=== PATIENT | female | born 1965 | race Caucasian/White ===

== ENCOUNTER 2017-06-20 11:36 | Inpatient (IN) | payer BC, OTHER ==
[~2017-06-20] VITALS: Ht 172.7 cm; Wt 83.7 kg
[~2017-06-20 11:36] MED LIST: ALPR0.5T99 PO; ISOMCAP PO; LEXA10TA PO
[2017-06-20 11:45] VITALS: BP 139/72; PULSE 83; RESP 16; TEMP 97.9; O2SAT 97
[2017-06-20] MEDS ORDERED: LISI-519 PO (12:01)
[2017-06-20] MEDS ORDERED: ALPR.5 PO (12:01)
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
[2017-06-20] MEDS ORDERED: ONDANSETRON HCL 4 MG/2 ML VIAL IVP ONE (12:15)
[2017-06-20] MEDS ORDERED: MORPHINE SULFATE 4 MG/ML INJ IV PUSH ONE (12:15)
[2017-06-20 12:34] LABS: AUTOMATED NEUTROPHIL # 6.7 TH/MM3 (1.8-7.7); BASOPHIL # 0.1 TH/MM3 (0-0.2); BASOPHIL % 0.9 % (0.0-2.0); EOSINOPHIL # 0.1 TH/MM3 (0-0.4); EOSINOPHIL % 1.1 % (0.0-4.0); HEMATOCRIT 38.6 % (35.0-46.0); HEMO FLAGS DIFF FINAL; LYMPH % 21.6 % (9.0-44.0); MEAN CELL VOLUME 86.6 FL (80.0-100.0); MEAN CORPUSCULAR HEMOGLOBIN 28.8 PG (27.0-34.0); MEAN CORPUSCULAR HGB CONC 33.2 % (32.0-36.0); MONO % 4.5 % (0.0-8.0); NEUT % 71.9 % (16.0-70.0); PLATELET COUNT 275 TH/MM3 (150-450); RED BLOOD COUNT 4.46 MIL/MM3 (4.00-5.30); WHITE BLOOD COUNT 9.3 TH/MM3 (4.0-11.0)
[2017-06-20] MEDS ORDERED: OLOP1DRO EACH EYE (12:46)
[2017-06-20] MEDS ORDERED: TRAM50TA PO (12:46)
[2017-06-20] MEDS ORDERED: NORE1CHW CHEW (12:46)
[2017-06-20] MEDS ORDERED: phentermine (12:46)
[2017-06-20 12:48] LABS: APTT (PATIENT) 22.9 SEC (24.3-30.1); INTERNATIONAL NORMALIZED RATIO 0.9 RATIO; PROTHROMBIN TIME - PATIENT 10.3 SEC (9.8-11.6)
--- NOTE | 2017-06-20 13:32 | RADRPT ---
EXAM DATE/TIME: 06/20/2017 13:05 [facility] COMPARISON: No previous studies available for comparison. INDICATIONS : Fell on right wrist MEDICAL HISTORY : None. SURGICAL HISTORY : None. ENCOUNTER: Initial ACUITY: 1 day PAIN SCORE: 8/10 LOCATION: Right wrist FINDINGS: There is a comminuted fracture of the distal radius with dorsal angulation and displacement of the di stal fragments. The fracture extends into the radiocarpal joint. This also fracturing at the ulnar st yloid. The carpal bones are normally aligned. CONCLUSION: Distal radial and ulnar styloid fracture. Robin Juarez MD on June 20, 2017 at 13:30 Board Certified Radiologist. This report was verified electronically.
[2017-06-20] MEDS ORDERED: HYDROmorphone HCL PF 1 MG/ML VIAL IVS ONE (14:00)
[2017-06-20 14:33] VITALS: BP 128/71; PULSE 60; RESP 18; O2SAT 100
[2017-06-20] MEDS ORDERED: MAGNESIUM HYDROXIDE SUSP 30 ML CUP PO PRN (14:45)
[2017-06-20] MEDS ORDERED: LACTULOSE SYRUP 20 GM/30 ML CUP PO PRN (14:45)
[2017-06-20] MEDS ORDERED: SODIUM CHLORIDE 0.9% FLUSH 10 ML FLUSH IV FLUSH PRN (14:45)
[2017-06-20] MEDS ORDERED: oxyCODONE/ACETAMINOPHEN 10 MG/325 MG TAB PO PRN (14:45)
[2017-06-20] MEDS ORDERED: BISACODYL 10 MG SUPP RECTAL PRN (14:45)
[2017-06-20] MEDS ORDERED: NALOXONE HCL 0.4 MG/ML AMP IV PUSH PRN (14:45)
[2017-06-20] MEDS ORDERED: ACETAMINOPHEN 325 MG TAB PO PRN (14:45)
[2017-06-20] MEDS ORDERED: SENNOSIDES 8.6 MG TAB PO PRN (14:45)
[2017-06-20] MEDS: SODIUM CHLOR 0.45% 1000 ML INJ 1,000 ML IV SCH (15:32)
--- NOTE | 2017-06-20 15:50 | RADRPT ---
EXAM DATE/TIME: 06/20/2017 15:14 [facility] COMPARISON: No previous studies available for comparison. INDICATIONS : Evaluate for pneumothorax, pneumonia or other disease, pre admission, pre op for wrist surgery MEDICAL HISTORY : None. SURGICAL HISTORY : None. ENCOUNTER: Initial ACUITY: 1 day PAIN SCORE: 0/10 LOCATION: Bilateral chest FINDINGS: PA and lateral views of the chest demonstrate the lungs to be symmetrically aerated without evidence of mass, infiltrate or effusion. The cardiomediastinal contours are unremarkable. Osseous structure s are intact. CONCLUSION: 1. No acute cardiopulmonary disease. Chuck Chowdary MD on June 20, 2017 at 15:48 Board Certified Radiologist. This report was verified electronically.
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
[2017-06-20 17:00] VITALS: BP 122/77; PULSE 65; O2SAT 99
[2017-06-20 18:53] VITALS: BP 137/75; PULSE 65; O2SAT 99
--- NOTE | 2017-06-20 19:13 | EKG ---
Date Performed: 06/20/2017 Time Performed: 15:28:42 PTAGE: 51 years EKG: Sinus rhythm WITH SINUS ARRHYTHMIA POSSIBLE LEFT ATRIAL ENLARGEMENT BORDERLINE ECG PREVIOUS TRACING : 11/29/2007 16.02 No significant change from previous tracing noted. DOCTOR: Levy Gomez Interpretating Date/Time 06/20/2017 19:12:54
[2017-06-20 20:44] VITALS: BP 136/76; PULSE 68; RESP 18; O2SAT 99
[2017-06-20 21:00] VITALS: BP 137/80; PULSE 61; RESP 18; TEMP 98.5; O2SAT 98
[2017-06-20] MEDS: SODIUM CHLORIDE 0.9% FLUSH 10 ML FLUSH IV FLUSH SCH (21:00)
[2017-06-20] MEDS: HYDROmorphone HCL 2 MG TAB PO PRN (21:21)
[2017-06-20] MEDS: DOCUSATE SODIUM 50 MG/SENNA 8.6 MG TAB PO SCH (21:24)
[2017-06-20] MEDS ORDERED: POVIDONE IODINE 5% (ANTISEPSIS KIT) 4 APPLICATIONS EACH NARE PRN (23:30)
[2017-06-20] MEDS ORDERED: LACTATED RINGER'S 1000 ML IV PRN (23:30)
[2017-06-20] MEDS ORDERED: METOPROLOL TARTRATE 25 MG TAB PO PRN (23:30)
[2017-06-20] MEDS ORDERED: CHLORHEXIDINE GLUCONATE 2 % 1 PACK (2 CLOTHS) TOPICAL PRN (23:30)
[2017-06-20] MEDS ORDERED: SODIUM CHLORID 0.9% 500 ML IV PRN (23:30)
[2017-06-20] MEDS ORDERED: INSULIN HUMAN REGULAR 1,000 UNITS/10 ML VIAL SQ PRN (23:30)
[2017-06-21] MEDS: HYDROmorphone HCL 2 MG TAB PO PRN (00:38)
[2017-06-21 00:51] VITALS: BP 132/76; PULSE 63; RESP 18; TEMP 97.7; O2SAT 97
[2017-06-21] MEDS ORDERED: HYDROmorphone HCL PF 1 MG/ML VIAL IV PRN (01:30)
[2017-06-21] MEDS: HYDROmorphone HCL PF 2 MG/ML VIAL IV PRN ×3 (01:33→13:00)
[2017-06-21 04:27] VITALS: BP 116/70; PULSE 55; RESP 18; TEMP 97.3; O2SAT 97
[2017-06-21] MEDS ORDERED: HYDR-3580 PO (06:42)
--- NOTE | 2017-06-21 06:43 | PD.ORT.PN ---
Subjective Subjective Remarks s/p fall at home right wrist pain. no other complaints. Objective Vitals Vital Signs Date Time Temp Pulse Resp B/P (MAP) Pulse Ox O2 Delivery O2 Flow Rate FiO2 06/21/17 06:03 18 06/21/17 04:27 97.3 55 18 116/70 (85) 97 06/21/17 02:03 18 06/21/17 00:51 97.7 63 18 132/76 (94) 97 06/20/17 21:00 98.5 61 18 137/80 (99) 98 06/20/17 20:45 68 18 99 06/20/17 20:44 68 18 136/76 (96) 99 Room Air 06/20/17 18:53 65 137/75 (95) 99 06/20/17 17:00 65 122/77 (92) 99 06/20/17 14:33 60 18 128/71 (90) 100 06/20/17 11:45 97.9 83 16 139/72 (94) 97 I/O 06/20/17 06/20/17 06/20/17 06/21/17 06/21/17 06/21/17 07:00 15:00 23:00 07:00 15:00 23:00 Intake Total 855 ml Balance 855 ml Intake Oral 480 ml IV Total 375 ml # Voids 1 # Bowel Movements 0 Result Diagram: 06/20/17 1216 06/20/17 1216 Other Results Laboratory Tests Test 06/20/17 12:16 Prothromb Time International Ratio 0.9 RATIO Prothrombin Time 10.3 SEC (9.8-11.6) Objective Remarks RUE: +sugar tong splint. NVI. no pain with shoulder movement Assessment & Plan Assessment and Plan 1) Right Distal Radius Fx -npo -surgery today Luis Dowell Jun 21, 2017 06:43
[2017-06-21] MEDS: ONDANSETRON HCL 4 MG/2 ML VIAL IVP PRN ×2 (06:57→16:20)
[2017-06-21] MEDS: SODIUM CHLOR 0.45% 1000 ML INJ 1,000 ML IV SCH ×2 (06:57→17:18)
--- NOTE | 2017-06-21 07:36 | MB ---
cc: KRISTEN PENN DATE OF ADMISSION 06/20/1972 DATE OF CONSULTATION 06/21/2017 REASON FOR CONSULTATION Comminuted right distal radius fracture. CONSULTING PHYSICIAN Dr. Hopper. HISTORY Ms. Mckeon is a pleasant 51-year female who had a fall. She was cleaning up debris [place] when she fell. She landed on her right arm. She is right-hand dominant. She had immediate right wrist pain and deformity. She had no dizziness, syncope or loss of consciousness. Her only complaint is her right wrist. The pain is worse with movement and is improved with rest. She has been able to stand and ambulate without difficulty. PAST MEDICAL HISTORY ILLNESSES Hypertension. ALLERGIES None. SURGERIES None. MEDICATIONS 1. Tramadol. 2. Xanax. 3. Lisinopril. 4. Eye drops. 5. [place]. 6. Phentermine. SOCIAL HISTORY The patient denies tobacco or drug use. She drinks alcohol occasionally. FAMILY HISTORY Unknown. She was adopted. REVIEW OF SYSTEMS The patient denies headache, visual changes, neck pain, chest pain, shortness of breath, abdominal pain, nausea, vomiting, recent weight loss, numbness or tingling of extremities. She complains of right wrist pain. The pain is worse with movement. PHYSICAL EXAMINATION GENERAL: The patient is a pleasant 51-year female in no acute distress. She is awake and alert. She is alert and oriented x3. VITAL SIGNS: Temperature 97.3, pulse 55, respirations 18, blood pressure 116/70, O2 sat 97% on room air. HEAD: The patient is normocephalic. Pupils are equal. NECK: Soft, nontender. Trachea is midline. ABDOMEN: Soft, nontender, nondistended. EXTREMITIES: Examination of the right arm reveals no tenderness of her shoulder or elbow. She is diffusely tender around the wrist. There is mild swelling present. There is some deformity noted. Skin is intact. She has good capillary refill of her fingers. Forearm compartments soft. Sensation is intact in the radial, ulnar, and median nerve distributions. Examination of the left arm reveals no pain with shoulder, elbow or wrist motion. She has intact sensation in all fingers. She has good capillary refill fingers. Visual Developer strength is +5. Examination of her lower extremities reveals no pain with hip, knee or ankle motion. Skin is intact to both feet. Dorsalis pedis pulses palpable. Skin is intact in both legs. X-RAYS X-rays of the right wrist were reviewed. X-rays reveal a displaced intraarticular right distal radius fracture. IMPRESSION 1. Hypertension. 2. Displaced intraarticular right distal radius fracture. PLAN The treatment options were discussed with the patient. At this point I would recommend open reduction, internal fixation of the right distal radius. The risks of surgery include bleeding, infection, injury arteries, nerves or blood vessels, painful hardware, tendon rupture, wrist stiffness, loss of motion as well as medical complications associated with anesthesia. All questions were answered. I will plan on surgery today. A mid-level provider in my office, nurse practitioner or PA, may see this patient on a follow-up basis and continue to implement the objective of this plan including: Starting or adjusting medications, injections of muscle, tendon, bursa or joints, cast application, orthotic or brace application, physical therapy, further radiographic studies including x-ray, MRI, CT, ultrasounds or bone scan, vascular studies, neurologic studies, or other specialist consultations, and proceeding with surgical management as appropriate. MD DEANDRE Galaviz/JOB /6:35 AM /7:24 AM
[2017-06-21] MEDS ORDERED: VANCOMYCIN HCL 1000 MG VIAL ONE (07:51)
[2017-06-21] MEDS ORDERED: SODIUM CHLOR 0.9% 250 ML INJ 250 ML ONE (07:51)
[2017-06-21] MEDS ORDERED: GENTAMICIN SULFATE 80 MG/2 ML VIAL ONE (07:51)
[2017-06-21 08:00] VITALS: BP 124/73; PULSE 51; RESP 17; TEMP 96; O2SAT 94
[2017-06-21 08:10] LABS: AUTOMATED NEUTROPHIL # 8.4 TH/MM3 (1.8-7.7); BASOPHIL % 0.4 % (0.0-2.0); EOSINOPHIL # 0.1 TH/MM3 (0-0.4); EOSINOPHIL % 0.8 % (0.0-4.0); HEMO FLAGS DIFF FINAL; LYMPH % 19.6 % (9.0-44.0); LYMPHOCYTE # 2.2 TH/MM3 (1.0-4.8); MEAN CELL VOLUME 88.9 FL (80.0-100.0); MEAN CORPUSCULAR HEMOGLOBIN 28.6 PG (27.0-34.0); MEAN CORPUSCULAR HGB CONC 32.2 % (32.0-36.0); MONO % 5.3 % (0.0-8.0); NEUT % 73.9 % (16.0-70.0); PLATELET COUNT 254 TH/MM3 (150-450); RED BLOOD COUNT 4.17 MIL/MM3 (4.00-5.30); RED CELL DISTRIBUTION WIDTH 13.8 % (11.6-17.2); WHITE BLOOD COUNT 11.3 TH/MM3 (4.0-11.0)
[2017-06-21] MEDS: SODIUM CHLORIDE 0.9% FLUSH 10 ML FLUSH IV FLUSH SCH ×2 (08:26→20:55)
[2017-06-21] MEDS: DOCUSATE SODIUM 50 MG/SENNA 8.6 MG TAB PO SCH ×2 (08:26→20:55)
[2017-06-21 08:35] LABS: ALT (GPT) 21 U/L (10-53); ANION GAP 10 MEQ/L (5-15); AST (GOT) 15 U/L (15-37); BICARBONATE 22.8 MEQ/L (21.0-32.0); BLOOD UREA NITROGEN 11 MG/DL (7-18); CHLORIDE 106 MEQ/L (98-107); GLOMERULAR FILTRATION RATE 78 ML/MIN (>89); POTASSIUM 3.4 MEQ/L (3.5-5.1); SODIUM (NA) 139 MEQ/L (136-145)
[2017-06-21 08:37] LABS: ALKALINE PHOSPHATASE 42 U/L (45-117); TOTAL BILIRUBIN ADULT 0.4 MG/DL (0.2-1.0)
[2017-06-21] MEDS ORDERED: FAMOTIDINE 20 MG/2 ML VIAL ONE (08:48)
[2017-06-21] MEDS ORDERED: ACETAMINOPHEN 1000 MG/100 ML 100 ML IV ONE (08:50)
[2017-06-21] MEDS ORDERED: APREPITANT 40 MG CAP ONE (08:52)
[2017-06-21] MEDS ORDERED: ceFAZolin 2 GM PREMIX 50 ML ONE (08:53)
[2017-06-21] MEDS ORDERED: DO NOT ADM ANY ANTICOAGULANT DRUGS PRN (10:53)
--- NOTE | 2017-06-21 11:19 | PD.OP ---
cc: Prabhjot Ramachandran MD Operative Report Date of Surgery: Jun 21, 2017 Preoperative Diagnosis: Comminuted intra-articular right distal radius fracture Postoperative Diagnosis: Procedure: Open reduction internal fixation right distal radius Surgeon: Prabhjot Ramachandran Drapery Operator(s): AFUA Davison PA-C The surgical procedure was assisted by my physician entry level assistant manager. My P.A. presence was necessary throughout this case for the manipulation and positioning of the surgical extremity. My P.A. was assisting me throughout the duration of this procedure. The skill set of a physician entry level assistant manager was medically necessary to complete this procedure. During the surgical case the surgical services director was working at the back table and the physician entry level assistant manager was directly assisting me. Operation and Findings: Patient was seen and evaluated preoperatively and found to have a displaced distal radius fracture. Informed consent was obtained after detailed discussion of risk and benefits including bleeding, infection, injury to arteries, nerves, and blood vessels, weakness and numbness of hand, and tendon rupture. Informed consent was obtained. Patient received IV antibiotics prior to incision. Timeout procedure was performed. Operative extremity was prepped with alcohol followed by Hibiclens and draped usual sterile fashion. A standard volar approach to the distal radius was utilized. A 3 inch incision was made over the FCR tendon. Tendon sheath was opened. Pronator quadratus was elevated up. The fracture site was now visualized. The fracture did have intra-articular extension with comminution of the articular surface. Traction was applied. The articular surface was reduced. Fracture fragments were manipulated to achieve excellent reduction. K wires were used to hold provisional fixation. Fluoroscopy confirmed appropriate alignment of fracture. A Synthes 2 column variable angle distal radius plate was selected. Plate was provisionally fixed to bone with K wires. 2.7 and 2.4 cortical screws were used to compress plate to bone. Fluoroscopy confirmed appropriate alignment of fracture with well-placed hardware. Multiple 2.4 locking screws were now placed distally. Screws were predrilled and measured for appropriate length. 2 additional screws were placed into the shaft. K wires were removed. Final fluoroscopy revealed excellent of fracture with well-placed hardware. The wound was thoroughly irrigated with sterile saline. Subcutaneous tissue was closed with 3-0 Vicryl and skin was closed with 3-0 nylon. Sterile dressings were applied with Xeroform, 4 x 4, soft roll, and a well padded volar splint. Patient was awakened and transferred to recovery room in stable condition Prabhjot Ramachandran MD Jun 21, 2017 11:19
[2017-06-21] MEDS ORDERED: MORPHINE SULFATE 4 MG/ML INJ IV PUSH PRN (11:30)
[2017-06-21] MEDS ORDERED: LIDOCAINE HCL 1% PF 5 ML AMPULE OTHER ONE (12:00)
[2017-06-21] MEDS ORDERED: SUCCINYLCHOLINE CHLORIDE 100 MG/5 ML SYRINGE IV PUSH ONE (12:00)
[2017-06-21] MEDS ORDERED: NEOSTIGMINE 3 MG/3 ML SYR IV ONE (12:00)
[2017-06-21] MEDS ORDERED: LACTATED RINGER'S 1000 ML INJ 1,000 ML IV ONE (12:00)
[2017-06-21] MEDS ORDERED: ROCURONIUM INJ 50 MG/5 ML SYRINGE IV PUSH ONE (12:00)
[2017-06-21] MEDS ORDERED: DEXAMETHASONE SOD PHOS 4 MG/ML VIAL IV ONE (12:00)
[2017-06-21] MEDS ORDERED: MIDAZOLAM HCL 2 MG/2 ML VIAL IV ONE (12:00)
[2017-06-21] MEDS ORDERED: ONDANSETRON HCL 4 MG/2 ML VIAL IV PUSH ONE (12:00)
[2017-06-21] MEDS ORDERED: PROPOFOL 200 MG/20 ML AMP IV ONE (12:00)
[2017-06-21] MEDS ORDERED: GLYCOPYRROLATE 0.2 MG/ML VIAL IV ONE (12:00)
[2017-06-21] MEDS ORDERED: MIDAZOLAM HCL 2 MG/2 ML VIAL ONE (12:12)
[2017-06-21] MEDS ORDERED: SUCCINYLCHOLINE CHLORIDE 100 MG/5 ML SYRINGE ONE (12:13)
[2017-06-21] MEDS ORDERED: ONDANSETRON HCL 4 MG/2 ML VIAL ONE (12:14)
[2017-06-21] MEDS ORDERED: DEXAMETHASONE SOD PHOS 4 MG/ML VIAL ONE (12:14)
[2017-06-21] MEDS ORDERED: PROPOFOL 200 MG/20 ML AMP ONE (12:15)
[2017-06-21] MEDS ORDERED: *morphine SULFATE 8 MG/ML PERIprocedure ONLY ONE (12:28)
[2017-06-21 13:00] VITALS: BP 127/71; PULSE 52; RESP 17; TEMP 96.2; O2SAT 95
--- NOTE | 2017-06-21 14:58 | HHI.PR ---
Subjective Remarks S/P right wrist fracture due to fall and for surgical repair today. Objective Vital Signs Date Time Temp Pulse Resp B/P (MAP) Pulse Ox O2 Delivery O2 Flow Rate FiO2 06/21/17 13:30 18 06/21/17 13:00 96.2 52 17 127/71 (89) 95 06/21/17 11:53 97.5 69 12 136/67 (90) 93 Room Air 06/21/17 08:00 96.0 51 17 124/73 (90) 94 06/21/17 04:27 97.3 55 18 116/70 (85) 97 06/21/17 02:03 18 06/21/17 00:51 97.7 63 18 132/76 (94) 97 06/20/17 21:00 98.5 61 18 137/80 (99) 98 06/20/17 20:45 68 18 99 06/20/17 20:44 68 18 136/76 (96) 99 Room Air 06/20/17 18:53 65 137/75 (95) 99 06/20/17 17:00 65 122/77 (92) 99 I/O 06/20/17 06/20/17 06/20/17 06/21/17 06/21/17 06/21/17 07:00 15:00 23:00 07:00 15:00 23:00 Intake Total 855 ml 0 ml 1400 ml Output Total 50 ml Balance 855 ml 0 ml 1350 ml Intake Oral 480 ml 0 ml IV Total 375 ml Other 1400 ml Output Estimated Blood Loss 50 ml # Voids 1 3 # Bowel Movements 0 0 Result Diagram: 06/21/17 0733 06/21/17 0733 Imaging Last Impressions Wrist X-Ray 06/20/17 0000 Signed Impressions: Service Date/Time: Tuesday, June 20, 2017 13:05 - CONCLUSION: Distal radial and ulnar styloid fracture. Robin Juarez MD Chest X-Ray 06/20/17 0000 Signed Impressions: Service Date/Time: Tuesday, June 20, 2017 15:14 - CONCLUSION: 1. No acute cardiopulmonary disease. Chuck Chowdary MD Objective Remarks 1. Right wrist Fracture 2. Hypokalemia 3. Nausea Medications and IVs Cont IV hydration and supplement KCL. Zofran PRN for nausea. Assessment and Plan Problem List: (1) Hypokalemia ICD Codes: E87.6 - Hypokalemia Status: Acute Plan: KCL BID (2) Nausea ICD Codes: R11.0 - Nausea Status: Acute Plan: Zofran PRN (3) Distal radius fracture, right ICD Codes: S52.501A - Unspecified fracture of the lower end of right radius, initial encounter for closed fracture Status: Acute Plan: For surgical repair today. Discussed Condition With Patient Discharge Planning Home with close F/U. Problem Qualifiers (1) Distal radius fracture, right: Lorenzo Montilla Jun 21, 2017 14:58
[2017-06-21 16:00] VITALS: BP 108/68; PULSE 58; RESP 18; TEMP 96.7; O2SAT 96
[2017-06-21] MEDS ORDERED: traMADol/ACETAMINOPHEN 37.5/325 1 TAB PO PRN (16:45)
[2017-06-21 20:51] VITALS: BP 142/78; PULSE 60; RESP 18; TEMP 96.9; O2SAT 97
[2017-06-21] MEDS: ACETAMINOPHEN/HYDROcodone 325 MG/7.5 MG TAB PO PRN (20:59)
--- NOTE | 2017-06-21 22:52 | RADRPT ---
EXAM DATE/TIME: 06/21/2017 11:07 [place] COMPARISON: No previous studies available for comparison. INDICATIONS : Right wrist ORIF. OR. MEDICAL HISTORY : None. SURGICAL HISTORY : None. ENCOUNTER: Initial ACUITY: 1 day PAIN SCORE: Non-responsive. LOCATION: Right wrist FINDINGS: Hardware is noted within the right distal radius status post ORIF. Avulsion fracture of the ulnar st yloid process is also noted. CONCLUSION: 1. Status post ORIF of right distal radial fracture with hardware in good position. 2. Displaced avulsion fracture of the ulnar styloid process. Preet Yepez MD on June 21, 2017 at 22:38 Board Certified Radiologist. This report was verified electronically.
[2017-06-22 00:31] VITALS: BP 124/71; PULSE 62; RESP 18; TEMP 98.4; O2SAT 98
[2017-06-22] MEDS: SODIUM CHLOR 0.45% 1000 ML INJ 1,000 ML IV SCH (04:13)
[2017-06-22 04:45] VITALS: BP 143/81; PULSE 59; RESP 18; TEMP 97.8; O2SAT 98
[2017-06-22] MEDS: ACETAMINOPHEN/HYDROcodone 325 MG/7.5 MG TAB PO PRN ×3 (05:46→12:33)
--- NOTE | 2017-06-22 07:30 | PD.ORT.PN ---
Subjective Subjective Remarks POD 1 s/p ORIF right wrist doing well. pain controlled. no changes Objective Vitals Vital Signs Date Time Temp Pulse Resp B/P (MAP) Pulse Ox O2 Delivery O2 Flow Rate FiO2 06/22/17 04:45 97.8 59 18 143/81 (101) 98 06/22/17 00:31 98.4 62 18 124/71 (88) 98 06/21/17 20:51 96.9 60 18 142/78 (99) 97 06/21/17 20:49 21 06/21/17 16:00 96.7 58 18 108/68 (81) 96 06/21/17 13:30 18 06/21/17 13:00 96.2 52 17 127/71 (89) 95 06/21/17 12:45 97.5 59 12 135/76 (95) 95 Room Air 06/21/17 12:30 62 12 130/71 (90) 94 Room Air 06/21/17 12:15 56 12 130/76 (94) 94 Room Air 06/21/17 12:00 61 12 147/67 (93) 93 Room Air 06/21/17 11:53 97.5 69 12 136/67 (90) 93 Room Air 06/21/17 08:00 96.0 51 17 124/73 (90) 94 I/O 06/21/17 06/21/17 06/21/17 06/22/17 06/22/17 06/22/17 07:00 15:00 23:00 07:00 15:00 23:00 Intake Total 0 ml 1400 ml 240 ml 240 ml Output Total 50 ml Balance 0 ml 1350 ml 240 ml 240 ml Intake Oral 0 ml 240 ml 240 ml Other 1400 ml Output Estimated Blood Loss 50 ml # Voids 3 2 2 # Bowel Movements 0 0 0 Result Diagram: 06/21/17 0733 06/21/1733 Objective Remarks RUE: +short arm splint. intact. NVI Assessment & Plan Assessment and Plan 1) Right Distal Radius Fx s/p ORIF - POD 1 -NWB -maintain splint -keep clean and dry -ortho clear for DC -f/u with Kaitlin or PA in 2 weeks Luis Dowell Jun 22, 2017 07:30
[2017-06-22 08:04] VITALS: BP 138/80; PULSE 99; RESP 17; TEMP 98.3; O2SAT 98
[2017-06-22 08:27] LABS: HEMATOCRIT 37.4 % (35.0-46.0); MEAN CELL VOLUME 90.2 FL (80.0-100.0); MEAN CORPUSCULAR HEMOGLOBIN 29.4 PG (27.0-34.0); MEAN CORPUSCULAR HGB CONC 32.6 % (32.0-36.0); PLATELET COUNT 226 TH/MM3 (150-450); RED BLOOD COUNT 4.15 MIL/MM3 (4.00-5.30); RED CELL DISTRIBUTION WIDTH 13.7 % (11.6-17.2); REVIEW FLAG FINAL; WHITE BLOOD COUNT 10.5 TH/MM3 (4.0-11.0)
[2017-06-22 09:00] LABS: BICARBONATE 25.2 MEQ/L (21.0-32.0); POTASSIUM 3.8 MEQ/L (3.5-5.1)
[2017-06-22] MEDS: SODIUM CHLORIDE 0.9% FLUSH 10 ML FLUSH IV FLUSH SCH (09:00)
[2017-06-22] MEDS: DOCUSATE SODIUM 50 MG/SENNA 8.6 MG TAB PO SCH (09:53)
[2017-06-22] MEDS ORDERED: INFLUENZA VIRUS VACCINE (QUADRIVALENT) 0.5 ML SYR IM ONE (10:00)
[2017-06-22] MEDS ORDERED: PHEN37.54 PO (11:09)
[2017-06-22 12:00] VITALS: BP 114/68; PULSE 72; RESP 20; TEMP 98.4; O2SAT 98
[2017-06-22 12:24] VITALS: O2SAT 95
--- NOTE | 2017-06-22 13:25 | HHI.FF ---
Face to Face Verification Diagnosis: (1) Distal radius fracture, right Home Health Nursing Order: Medical education Nursing assessment with vital signs I have seen patient Mya Mckeon on 06/22/17. My clinical findings support the need for the requested home health care services because: Deconditioned w/ increased weakness I certify that my clinical findings support that this patient is homebound because: Post-op weakness Vero Packer Jun 22, 2017 13:25
--- NOTE | 2017-06-22 13:30 | HHI.DS ---
Discharge Summary Admission Date Jun 20, 2017 at 13:52 Discharge Date: Jun 22, 2017 Admitting Diagnosis R wrist fx requiring operative repair (1) Distal radius fracture, right ICD Codes: S52.501A - Unspecified fracture of the lower end of right radius, initial encounter for closed fracture Status: Acute Brief History Ms. Mckeon is a pleasant 51-year female who had a fall. She was cleaning up debris from [place] when she fell. She landed on her right arm. She is right-hand dominant. She had immediate right wrist pain and deformity. She had no dizziness, syncope or loss of consciousness. Her only complaint is her right wrist. The pain is worse with movement and is improved with rest. She has been able to stand and ambulate without difficulty. CBC/BMP: 06/22/17 0728 06/22/17 0728 Significant Findings Laboratory Tests Test 06/20/17 12:16 06/21/17 07:33 06/22/17 07:28 Neutrophils (%) (Auto) 71.9 % (16.0-70.0) 73.9 % (16.0-70.0) Activated Partial Thromboplast Time 22.9 SEC (24.3-30.1) Estimat Glomerular Filtration Rate 71 ML/MIN (>89) 78 ML/MIN (>89) 78 ML/MIN (>89) White Blood Count 11.3 TH/MM3 (4.0-11.0) Neutrophils # (Auto) 8.4 TH/MM3 (1.8-7.7) Random Glucose 127 MG/DL (74-106) Albumin 3.2 GM/DL (3.4-5.0) Calcium Level 8.0 MG/DL (8.5-10.1) 8.3 MG/DL (8.5-10.1) Alkaline Phosphatase 42 U/L (45-117) Potassium Level 3.4 MEQ/L (3.5-5.1) PE at Discharge GENERAL: alert and oriented SKIN: Warm and dry. Lan wrap on right arm HEAD: Normocephalic. EYES: No scleral icterus. No injection or drainage. NECK: Supple, trachea midline. No JVD or lymphadenopathy. CARDIOVASCULAR: Regular rate and rhythm without murmurs, gallops, or rubs. RESPIRATORY: Breath sounds equal bilaterally. No accessory muscle use. GASTROINTESTINAL: Abdomen soft, non-tender, nondistended. MUSCULOSKELETAL: No cyanosis, or edema. BACK: Nontender without obvious deformity. No CVA tenderness. Hospital Course Ms. Mckeon is a pleasant 51-year female who had a fall. She was cleaning up debris from [place] when she fell. She landed on her right arm. She is right-hand dominant. She had immediate right wrist pain and deformity. She is S/p ORIF of right distal radius with dressing on 06/21/17. Pain is well controlled at current time and is cleared per ortho for discharged. She is discharged home with [facility] with follow up appt made in office. Pt Condition on Discharge: Good Discharge Disposition: Disch w/ Home Health Serv Discharge Instructions DIET: Follow Instructions for: As Tolerated, No Restrictions Activities you can perform: Regular-No Restrictions Follow up Referrals: Orthopedics - 2 Weeks @ [facility] with Prabhjot Madrigal MD PCP Follow-up @ [facility] Medications: Hydrocodone-Acetaminophen (Hydrocodone-Acetaminophen) 7.5-325 mg Tab 1 TAB PO Q4H PRN for PAIN, #60 TAB 0 Refills Continued Medications: Alprazolam (Xanax) 0.5 Mg Tab 0.5 MG PO Q6H PRN for ANXIETY, TAB 0 Refills Lisinopril (Lisinopril) 5 Mg Tab 5 MG PO DAILY for Blood Pressure Management, #30 TAB 0 Refills Norethindrone-Ethinyl Estradiol ([place] Fe 0.8/25) 0.8-25 Mg-Mcg Chew 1 TAB CHEW DAILY for Control, #1 PACK 0 Refills Olopatadine Opth 0.7% ([place] Opth 0.7%) 0.7 % Drops 1 DROP EACH EYE DAILY for Allergies, #1 BOTTLE 0 Refills Discontinued Medications: Phentermine (Phentermine) 37.5 Mg Cap 37.5 MG PO DAILY, CAP Tramadol (Tramadol) 50 Mg Tab 50 MG PO Q6H PRN for PAIN, TAB 0 Refills Vero Packer Jun 22, 2017 13:30
== END 2017-06-22 15:33 | disposition home or self-care (01) | DRG 512 ==
LOC: PHED 11:36 → PHEDA 13:52 → PHEDH 17:51 → N06A 21:06
PROVIDERS: ADMIT Family Medicine; ATTEND Family Medicine
PROC: 0PSH04Z Reposition Right Radius with Internal Fixation Device, Open Approach (ICD-10-PCS; principal; 2017-06-21 10:16)
DX: S52.571A Other intraarticular fracture of lower end of right radius, initial encounter for closed fracture (principal); I10 Essential (primary) hypertension; S52.613A Displaced fracture of unspecified ulna styloid process, initial encounter for closed fracture; W01.0XXA Fall on same level from slipping, tripping and stumbling without subsequent striking against object, initial encounter; Y93.H9 Activity, other involving exterior property and land maintenance, building and construction; Y92.007 Garden or yard of unspecified non-institutional (private) residence as the place of occurrence of the external cause; Z23 Encounter for immunization; E87.6 Hypokalemia; R11.0 Nausea
CPT/HCPCS: 71020; 73100; 73110; 76000; 80048; 80053; 85025; 85027; 85610; 85730; 90686; 93005; 96374; 96375; C1713; J0131; J0330; J0690; J1100; J1170; J1580; J2250; J2270; J2405; J2710; J3010; J3370; J7050; J7120; J8501; Q2038